=== PATIENT | female | born 1935 | race Caucasian/White ===

== ENCOUNTER 2020-08-01 12:16 | Emergency (ER) | payer MEDICARE ==
[2020-08-01 13:08] LABS: #Eosinphils 0.1 thou/uL (0.0-0.7); #Lymphocytes 2.5 thou/uL (1.20-3.40); #Monocytes 0.5 thou/uL (0.11-0.59); #Neutrophils 2.4 thou/uL (1.40-6.50); %Basophils 0.7 % (0.0-1.0); %Eosinophils 2.6 % (0.0-10.0); %Lymphocytes 44.9 % (21.0-51.0); %Monocytes 8.3 % (0.0-10.0); %Neutrophils 43.5 % (42.0-75.0); Hemoglobin 10.7 g/dL (12.0-16.0); Mean Corpuscular HGB CONC 32.5 g/dL (32.0-36.0); Mean Corpuscular Hemoglobin 31.8 pg (27.0-31.0); Mean Corpuscular Volume 97.8 fL (78.0-98.0); Mean Platelet Volume 7.6 fL (7.4-10.4); Platelet Count 188 thou/uL (130-400); Prothrombin Time 13.3 sec (12.0-14.7); RBC Distribution Width 11.6 % (11.5-14.5); Red Blood Cell (RBC) Count 3.38 mill/uL (4.20-5.40); White Blood Cell (WBC) Count 5.6 thou/uL (4.8-10.8)
[2020-08-01 13:18] LABS: ALT (SGPT) 19 U/L (8-55); AST (SGOT) 19 U/L (5-34); Alkaline Phosphatase 51 U/L (40-110); Anion Gap 16 mmol/L (10-20); BUN (Urea Nitrogen) 14 mg/dL (9.8-20.1); Bilirubin, Total 0.3 mg/dL (0.2-1.2); Calc. Creatinine Clearance 0 mL/min (70-130); Carbon Dioxide 25 mmol/L (23-31); Chloride 102 mmol/L (98-107); Globulin 3.1 g/dL (2.4-3.5); Glucose 102 mg/dL (83-110); Potassium 4.5 mmol/L (3.5-5.1); Protein, Total 7.1 g/dL (6.0-8.3); Sodium 138 mmol/L (136-145)
[2020-08-01] MEDS ORDERED: Aspirin Chewable 81 MG TAB ONE (14:42)
--- NOTE | 2020-08-01 15:43 | CT ---
CT OF THE BRAIN WITHOUT CONTRAST: 08/01/20 Comparison is made with the prior study dated 05/06/08. Today's exam shows diffuse atrophy with some mild chronic ischemic change. Ventricles are normal in s ize for age and atrophy. No intracranial bleeding or extra-axial hematoma was seen. No masses detecte d. There is a peripheral low density area in the left parieto-occipital region on scan 14. The slices a alexandro and below it do not appear abnormal. This may just be an area of volume averaging through sulci, but stroke lies in the differential. The finding could be correlated with clinical presentation. Cur rently, I lean more towards it being volume averaging only because it is seen on one slice. The clini romi information could sway me differently. The skull appears intact with no sign of fracture. The visible paranasal sinuses are clear. The nasal bones and zygomatic arches appear intact. IMPRESSION: 1. No acute traumatic findings. 2. Vague peripheral low density area in the left parieto-occipital region peripherally on one sl ice only. Volume averaging versus stroke. See discussion above. Findings discussed with Dr. Priest at 1326 on 08/01/20. POS: HOME
--- NOTE | 2020-08-01 15:53 | CT ---
CT OF THE CERVICAL SPINE 08/01/[address] of the cervical spine was done for evaluation following trauma. No acute fracture or disloc ation was seen. C5 seems located a little more posteriorly than normal but as best as I can tell, thi s is based upon severe degenerative changes in this disc space and facet arthritis at this location. The C1 to dens distance is normal and the soft tissues are normal in thickness. The findings by level follow: C1-C2: No acute findings. C2-C3: Mild left facet arthritis and mild left foraminal narrowing. C3-C4: Prominent bilateral facet arthritis with mild bilateral foraminal narrowing. C4-C5: Mild facet arthritis bilaterally. Minimal foraminal narrowing. C5-C6: Moderate left foraminal narrowing due to osteophytes. There is slight narrowing of the central canal to 8 mm which could cause a mild degree of central canal stenosis. C6-C7: Mild left foraminal narrowing. C7-T1: Mild right foraminal narrowing. T1-T2: No acute findings. T2-T3: No acute findings. Lung apices are clear and show no pneumothorax. IMPRESSION: Degenerative changes of the spine, quite advanced around the C5-C6 level with severe disc space mckeon es at C5-C6 and C6-C7. No fracture seen. Preliminary report called to Dr. Priest at 1526 on 08/01/30. POS: HOME
--- NOTE | 2020-08-01 15:54 | RAD ---
PORTABLE CHEST: 08/01/20 An AP portable film at 1328 is compared with a 06/17/10 study. The heart is normal in size and the lungs are clear. There is no mediastinal widening or shift. No in filtrates or effusions were seen. No gross fractures were detected. IMPRESSION: No acute finding. POS: HOME
== END 2020-08-01 15:11 | disposition home or self-care (01) ==
LOC: BURERS 12:16
DX: R42 Dizziness and giddiness (principal); W18.30XA Fall on same level, unspecified, initial encounter
CPT/HCPCS: 70450; 71045; 72125; 80053; 83880; 84484; 85025; 85610; 93005